=== PATIENT | female | born 1940 | race Caucasian/White ===

== ENCOUNTER → 2018-01-29 | Outpatient (CLI) | payer OTHER ==
[~2018-01-29] MED LIST: CALCITRIOL; CALTRATE-600 W1 EACH; DOXYCYCLINE 10100 M1 PO; DOXYCYCLINE HYC50 M1 PO; HYDROCODON-ACE1 EACH; PEPCID AC20 M1 PO; PHENERGAN50 MG RECTAL; SINGULAIR 10 MG10 M1 PO; SYNTHROID100 MCG; TUMS E.S.750 MG; VITAMIN D 5050000 I1 PO; ZYRTEC 10 MG TA10 M1 PO
== END ==
LOC: CAT 15:20
DX: H53.9 Unspecified visual disturbance (principal); R41.3 Other amnesia

== ENCOUNTER → 2018-02-06 | Outpatient (CLI) | payer OTHER | LOC: CAT 12:42 | DX: K44.9 Diaphragmatic hernia without obstruction or gangrene (principal); G70.00 Myasthenia gravis without (acute) exacerbation ==